=== PATIENT | female | born 2000 | race African-American/Black ===

== ENCOUNTER 2019-10-15 19:23 | Emergency (ER) | payer MEDICAID, OTHER ==
[~2019-10-15] VITALS: Ht 165.1 cm; Wt 125.6 kg
[2019-10-15 20:22] LABS: Urine Bacteria NONE SEEN /hpf (None Seen); Urine Blood Negative /uL (Negative); Urine Mucus FEW (None Seen); Urine Specific Gravity 1.039 (1.001-1.035); Urine WBC 1 /hpf (0 - 5)
[2019-10-15 21:05] VITALS: BP 142/52
== END 2019-10-15 22:28 | disposition home or self-care (01) ==
LOC: ER 19:23
DX: O26.891 Other specified pregnancy related conditions, first trimester (principal); R10.30 Lower abdominal pain, unspecified; O99.211 Obesity complicating pregnancy, first trimester; Z3A.01 Less than 8 weeks gestation of pregnancy
CPT/HCPCS: 81001; 81025